=== PATIENT | male | born 1955 | race Caucasian/White ===

== ENCOUNTER 2022-09-03 13:52 | Emergency (ER) | payer OTHER ==
[~2022-09-03] VITALS: Ht 172.7 cm; Wt 81.6 kg
[2022-09-03] MEDS ORDERED: LOSARTAN POTASS50 MG PO (15:39)
[2022-09-03] MEDS ORDERED: LIPITOR20 MG PO (15:39)
[2022-09-03] MEDS ORDERED: TRAMADOL HCL50 MG PO (17:28)
== END 2022-09-03 18:40 | disposition home or self-care (01) ==
LOC: ER 13:52
DX: M79.675 Pain in left toe(s) (principal); E78.00 Pure hypercholesterolemia, unspecified; I10 Essential (primary) hypertension

== ENCOUNTER 2022-09-05 07:57 | Outpatient (CLI) | payer OTHER ==
[~2022-09-05 07:57] MED LIST: LIPITOR20 MG PO; LOSARTAN POTASS50 MG PO; TRAMADOL HCL50 MG PO
== END 2022-09-05 07:59 | disposition home or self-care (01) ==
LOC: NUCLEAR 07:57
PROVIDERS: ATTEND General Practice
DX: R03.0 Elevated blood-pressure reading, without diagnosis of hypertension (principal)

== ENCOUNTER 2022-09-06 07:47 | Outpatient (CLI) | payer OTHER | END 2022-09-06 07:50 | disposition home or self-care (01) | LOC: NUCLEAR 07:47 | PROVIDERS: ATTEND General Practice | DX: R03.0 Elevated blood-pressure reading, without diagnosis of hypertension (principal) ==